=== PATIENT | male | born 2000 | race Caucasian/White ===

== ENCOUNTER 2018-09-09 18:04 | Emergency (ER) | payer BC ==
[~2018-09-09] VITALS: Ht 190.5 cm; Wt 108.7 kg
[2018-09-09 18:40] VITALS: BP 139/61; PULSE 72; RESP 18; Ht 190.5 cm; Wt 108.7 kg
[2018-09-09] MEDS ORDERED: CLINDAMYCIN 300 MG/D5W (PMX) 50 ML IVPB STA (19:15)
--- NOTE | 2018-09-09 19:17 | ERD ---
ER Documentation Chief Complaint Chief Complaint ST x2 days, on abx-no improvement. hx of peritonsillar abscess, no SOB HPI 18-year-old male, previously healthy, presents to the emergency department, complaining of persistent sore throat despite the use of azithromycin prescribed at urgent care 2 days ago. He denies fever, no difficulty swallowing, no shortness of breath. The patient reports a history of peritonsillar abscess. ROS All systems reviewed and are negative except as per history of present illness. Medications Home Meds Active Scripts Ibuprofen* (Motrin*) 400 Mg Tab, 400 MG PO Q6H PRN for PAIN AND OR ELEVATED TEMP, #20 TAB Prov:EARL CHOW MD 09/09/18 Clindamycin Hcl* (Clindamycin Hcl*) 300 Mg Capsule, 300 MG PO TID for 10 Days, CAP Prov:EARL CHOW MD 09/09/18 Allergies Allergies: Coded Allergies: Penicillins (Verified Allergy, Unknown, rash, 09/09/18) PMhx/Soc Medical and Surgical Hx: pt denies Medical Hx, pt denies Surgical Hx Hx Alcohol Use: No Hx Substance Use: No Hx Tobacco Use: No Smoking Status: Current some day smoker FmHx Family History: No diabetes, No coronary disease Physical Exam Vitals Vital Signs Date Temp Pulse Resp B/P (MAP) Pulse Ox O2 O2 Flow FiO2 Time Delivery Rate 09/09/18 99.0 72 18 139/61 98 18:40 (87) Physical Exam Patient is no distress, vital signs stable. EYES: PERRLA, EOMI, injected sclerae EARS: Canals clear, erythematous tympanic membranes THROAT: Erythematous oropharynx with bilateral exudates, no uvular deviation but significant edema over the right tonsil NECK: Supple, + tender cervical lymphadenopathy. Full ROM without pain or tenderness. HEART: RRR, no rubs, murmurs, clicks or gallops. LUNGS: Bilaterally clear to auscultation. ABDOMEN: Soft, non-tender without masses or hepatosplenomegaly. EXTREMITIES: No edema bilaterally. BACK: Full ROM, no deformity, normal back exam NEURO: Cranial nerves grossly intact, no motor or sensory deficit Results 24 hrs Current Medications Medications Dose Sig/Victor Manuel Start Time Status Last (Trade) Ordered Route PRN Stop Time Admin Dose Reason Admin 8 mg ONCE ONCE 09/09/18 DC 09/09/18 Dexamethasone IV 19:30 19:34 (Decadron) 09/09/18 19:31 Clindamycin 50 ml @ ONCE STAT 09/09/18 DC 09/09/18 HCl/ 100 mls/hr IVPB 19:15 19:34 Dextrose 09/09/18 19:44 Sodium 500 ml @ Q1H ONCE 09/09/18 DC 09/09/18 Chloride 500 mls/hr IV 19:30 19:34 09/09/18 20:29 Procedures/MDM Differential diagnosis include but not limited to: Tonsillar/pharyngeal infection bacterial/viral/fungal, parotitis, allergies, GERD. Less likely peritonsillar abscess, retropharyngeal abscess. No signs of upper respiratory obstruction Physical examination and clinical presentation consistent most likely with acute suppurative tonsillitis with peritonsillar cellulitis. During the ED course the patient remained stable. Clinical impression discussed with the patient who agrees with management. The patient is stable to be treated outpatient and will be discharged home with a Rx for clindamycin and ibuprofen Some side effects of prescribed medications (headache, rash, nausea, vomiting, diarrhea, drowsiness, habituation, bleeding, hypertension, interactions with other medications) were reviewed. The patient was instructed to follow up with the primary care provider in the next 48h. If symptoms persist, worsen or new symptoms develop, then patient should return to the ED immediately. Disclaimer: Inadvertent spelling and grammatical errors are likely due to EHR/dictation software use and do not reflect on the overall quality of patient care. Also, please note that the electronic time recorded on this note does not necessarily reflect the actual time of the patient encounter. Departure Diagnosis: Primary Impression: Peritonsillar cellulitis Condition: Stable Additional Instructions: Muchas long por [facility] para gupta servicio. Esperamos que en gupta visita a la uche de emergencia gupta problema medico haya sido solucionado y que se sienta mucho mejor. Para estar seguros que gupta mejoria sigue en proceso, le pedimos el favor de hacer michael michael de seguimiento medico con gupta doctor primario en los proximos 2-4 wen. Lleve con usted estos documentos y las medicinas recetadas. Si annalee sintomas empeoran, NO SE ESPERE, por favor regrese a uche de emergencia INMEDIATAMENTE. En guevara que usted no tenga un mdico de atencin primaria: Llame al mdico o clnica comunitaria de referencia que aparece abajo randy las horas de consultorio para hacer michael michael para que le vean. CLINICAS: [facility] [phone] [id number] [facility] [id number] [facility] [phone] [facility] [id number] [facility] [phone] [id number] [facility]. [phone] EARL CROUCH MD September 09, 2018 19:17
[2018-09-09] MEDS ORDERED: DEXAMETHASONE 10 MG/ML 1 ML INJ IV ONE (19:30)
[2018-09-09] MEDS ORDERED: SOD CHLORIDE 0.9% 500 ML IV ONE (19:30)
[2018-09-09] MEDS ORDERED: CLIN300C10 PO (21:06)
[2018-09-09] MEDS ORDERED: IBUP-1561 PO (21:06)
== END 2018-09-09 21:17 | disposition home or self-care (01) ==
LOC: FTE 18:04
DX: J36 Peritonsillar abscess (principal); F17.210 Nicotine dependence, cigarettes, uncomplicated
CPT/HCPCS: 96374; 96375; 99284; J1100; J7040